=== PATIENT | male | born 1990 ===

== ENCOUNTER 2016-05-06 08:43 | Emergency (ER) | payer OTHER ==
[2016-05-06 08:50] VITALS: BP 140/80; PULSE 70; RESP 18; TEMP 98.6; O2SAT 99
--- NOTE | 2016-05-06 09:17 | C.PDOC ---
History Of Present Illness 25-year-old male, denies significant PMHx, presents to the emergency department with complaints of facial numbness. Patient states he has been experiencing one- week duration of right-sided facial droop and numbness. States his right eye starts tearing due to him being unable to fully close it. Denies nausea/vomiting , weakness or numbness in extremities, dizziness, fevers, chills, recent camping trip, speech changes, rash or any other associated symptoms. No other complaints at this time. Time Seen by Provider: 05/06/16 09:01 Chief Complaint (Nursing): Weakness/Neurological Deficit History Per: Patient History/Exam Limitations: no limitations Onset/Duration Of Symptoms: Days Current Symptoms Are (Timing): Better Severity: Moderate Past Medical History Reviewed: Historical Data, Nursing Documentation, Vital Signs Vital Signs: Last Vital Signs Temp 98.6 F 05/06/16 08:48 Pulse 70 05/06/16 08:48 Resp 18 05/06/16 08:48 BP 140/80 05/06/16 08:48 Pulse Ox 99 05/06/16 10:03 - Medical History PMH: No Chronic Diseases Family History: States: Unknown Family Hx - Social History Hx Alcohol Use: No Hx Substance Use: No Review Of Systems Constitutional: Negative for: Fever, Weakness, Malaise Eyes: Negative for: Pain, Vision Change ENT: Negative for: Ear Pain, Throat Pain Cardiovascular: Negative for: Chest Pain, Palpitations Respiratory: Negative for: Cough, Shortness of Breath Musculoskeletal: Negative for: Neck Pain, Back Pain Skin: Negative for: Rash Neurological: Positive for: Numbness. Negative for: Weakness, Incoordination, Change in Speech, Confusion, Seizures, Altered Mental Status, Headache, Dizziness Physical Exam - Physical Exam Appears: Non-toxic, No Acute Distress Skin: Warm, Dry, No Rash Head: Atraumatic, Normacephalic Eye(s): bilateral: Normal Inspection, PERRL, EOMI Nose: Normal Oral Mucosa: Moist Lips: Normal Appearing Neck: Normal ROM Cardiovascular: Rhythm Regular Respiratory: Normal Breath Sounds, No Accessory Muscle Use Extremity: Normal ROM Neurological/Psych: Oriented x3, Normal Speech, No Normal Cranial Nerves (right facial nerve paralysis), Other (mild asymmetry the right face ) Gait: Steady ED Course And Treatment O2 Sat by Pulse Oximetry: 99 Pulse Ox Interpretation: Normal Medical Decision Making Medical Decision Making: Patient with right facial palsy. Remainder of exam is normal, no focal deficits. Advise patient to use artificial tears. Instruct to follow up with primary doctor. Disposition Counseled Patient/Family Regarding: Need For Followup, Rx Given - Disposition Referrals: [facility] [Outside] [facility] [Outside] Disposition: HOME/ ROUTINE Disposition Time: 09:17 Condition: STABLE Additional Instructions: Follow up with your primary medical doctor or clinic in 2-5 days for further evaluation. Take medications as prescribed. Return to the emergency department at any time if symptoms persist or worsen. Prescriptions: Polyethylene Glycol/Polyvinyl [Artificial Tears] 15 ml OD QID #1 bottle Instructions: Hargrove Palsy (ED) - POA Present On Arrival: None - Clinical Impression Clinical Impression: Hargrove's palsy - Scribe Statement The provider has reviewed the documentation as recorded by the Scribchuck Mazariegos All medical record entries made by the Scribe were at my direction and personally dictated by me. I have reviewed the chart and agree that the record accurately reflects my personal performance of the history, physical exam, medical decision making, and the department course for this patient. I have also personally directed, reviewed, and agree with the discharge instructions and disposition.
== END 2016-05-06 09:28 | disposition home or self-care (01) ==
LOC: C.ER 08:43
DX: G51.0 Bell's palsy (principal)